=== PATIENT | female | born 1970 | race Caucasian/White ===

== ENCOUNTER 2021-10-25 11:06 | Emergency (ER) | payer OTHER ==
[2021-10-25 11:26] VITALS: BMI 29.2
[2021-10-25 14:51] LABS: EPI CELLS 32 /uL (0-25.1); HYALINE CASTS 1 /uL (0-3.1); URINE APPEARANCE CLEAR; URINE BACTERIA 314 /uL (0-1359); URINE BILIRUBIN NEGATIVE (NEGATIVE); URINE COLOR YELLOW; URINE GLUCOSE (UA) NEGATIVE (NEGATIVE); URINE KETONE NEGATIVE (NEGATIVE); URINE LEUK ESTERASE 1+ (NEGATIVE); URINE NITRITE NEGATIVE (NEGATIVE); URINE PROTEIN NEGATIVE (NEGATIVE); URINE RBC 4 /uL (0-23.9); URINE UROBILINOGEN 0.2 mg/dL (0.2-1.0); URINE WBC 12 /uL (0-25.8)
[2021-10-25 14:52] LABS: BASO % 0.9 % (0-2.0); HEMATOCRIT 35.8 % (32.4-45.2); HEMOGLOBIN 10.8 GM/dL (10.7-15.3); LYMPH % 18.2 % (8-40); MCH 22.8 pg (25.7-33.7); MCHC 30.1 g/dl (32.0-36.0); MEAN CELL VOLUME 75.5 fl (80-96); MEAN PLT VOLUME 8.6 fl (7.5-11.1); MONO % 6.6 % (3.8-10.2); NEUT % 70.3 % (42.8-82.8); PLATELET COUNT 382 10^3/uL (134-434); RBC 4.74 M/mm3 (3.60-5.2); RDW 27.8 % (11.6-15.6); WHITE BLOOD COUNT 9.9 K/mm3 (4.0-10.0)
[2021-10-25 14:58] LABS: INR 1.04 (0.83-1.09)
[2021-10-25 15:01] LABS: ACTIVATED PTT 28.4 SECONDS (25.2-36.5)
[2021-10-25 15:07] LABS: ALBUMIN 3.8 g/dl (3.4-5.0); BLOOD UREA NITROGEN 10.8 mg/dL (7-18); CALCIUM 9.7 mg/dL (8.5-10.1)
[2021-10-25 15:08] LABS: MAGNESIUM 1.8 mg/dL (1.8-2.4)
[2021-10-25 15:10] LABS: CREATININE 0.4 mg/dL (0.55-1.3)
[2021-10-25 15:12] LABS: BILIRUBIN,TOTAL 0.2 mg/dL (0.2-1); TOT PROT 7.5 g/dl (6.4-8.2)
[2021-10-25 15:47] LABS: ANISOCYTOSIS 1+; MACROCYTOSIS 1+; PLATELET ESTIMATE ADEQUATE
[2021-10-25 18:33] VITALS: BP 123/77; PULSE 69; TEMP 98.9
== END 2021-10-25 18:34 | disposition home or self-care (01) ==
LOC: JER 11:06
DX: R07.89 Other chest pain (principal); M54.50 Low back pain, unspecified
CPT/HCPCS: 36415; 71046-TC-FY; 80053; 81003; 83690; 83735; 84484; 85025; 85610; 85730; 87086; 93005; 93010; 99285-25

== ENCOUNTER 2022-09-23 10:42 | Day surgery (SDC) | payer OTHER ==
[~2022-09-23 10:42] MED LIST: FERRIC CARBOXYMALTOSE 750 MG in SODIUM CHLORIDE 250 ML IVPB ONE
[2022-09-23 17:11] VITALS: BP 106/64; PULSE 98; RESP 20; TEMP 98.2
== END 2022-09-23 12:30 | disposition home or self-care (01) ==
LOC: JONCNONCHE 10:42
PROVIDERS: ATTEND Internal Medicine Hematology & Oncology
PROC: 3E033GC Introduction of Other Therapeutic Substance into Peripheral Vein, Percutaneous Approach (ICD-10-PCS; principal; 2022-09-23)
DX: D50.9 Iron deficiency anemia, unspecified (principal)
CPT/HCPCS: 96365; J1439

== ENCOUNTER 2022-09-30 13:26 | Day surgery (SDC) | payer OTHER ==
[2022-09-30 15:49] VITALS: BP 108/67; PULSE 77; RESP 20; TEMP 98.4
== END 2022-09-30 15:00 | disposition home or self-care (01) ==
LOC: JONCNONCHE 13:26
PROVIDERS: ATTEND Internal Medicine Hematology & Oncology
DX: D50.9 Iron deficiency anemia, unspecified (principal)
CPT/HCPCS: 96365; J1439